=== PATIENT | female | born 1945 | race Caucasian/White ===

== ENCOUNTER 2018-05-31 21:47 | Emergency (ER) | payer MEDICARE, OTHER, MEDICAID ==
[~2018-05-31] VITALS: Ht 154.9 cm; Wt 63.0 kg
[~2018-05-31 21:47] MED LIST: ALBU18HF2 IH; ALD25T PO; ALPR-624 PO; AMIO200T40 PO; DIT5T PO; ESZO3TAB28 PO; FERR325T28 PO; FLUO20CA39 PO; FOLI-43 PO; MAGN400C PO; NOR5T PO; OMEP-84 PO; OXYC-658 PO; POTA10TA25 PO; RIVA15TA PO; SYN0.0125T PO; VITC500T PO
[2018-05-31 23:58] VITALS: BP 116/78
== END 2018-06-01 | disposition home or self-care (01) ==
LOC: ER 21:47
DX: S00.83XA Contusion of other part of head, initial encounter (principal); I48.91 Unspecified atrial fibrillation; I50.9 Heart failure, unspecified; Z88.2 Allergy status to sulfonamides; Z88.8 Allergy status to other drugs, medicaments and biological substances; W18.30XA Fall on same level, unspecified, initial encounter; Y93.89 Activity, other specified; Y92.89 Other specified places as the place of occurrence of the external cause; Y99.8 Other external cause status
CPT/HCPCS: 70450; 70486; 99284

== ENCOUNTER 2018-11-07 17:06 | Emergency (ER) | payer MEDICARE, OTHER, MEDICAID ==
[~2018-11-07] VITALS: Ht 157.5 cm; Wt 61.2 kg
[~2018-11-07 17:06] MED LIST changes: -AMIO200T40 PO; +AMIO200T61 PO
--- NOTE | 2018-11-07 17:19 | NUR ---
Pt taken to room 7, Dr Rodríguez aware of patient.
--- NOTE | 2018-11-07 18:28 | NUR ---
TRAUMA LEVEL 2 CALLED OFF BY [facility]
[2018-11-07] MEDS ORDERED: METO-411 PO (19:05)
[2018-11-07] MEDS ORDERED: AMIT50TA11 PO (19:05)
[2018-11-07] MEDS ORDERED: LISI-600 PO (19:05)
[2018-11-07] MEDS ORDERED: HYDR-3965 PO (21:00)
[2018-11-07 21:47] VITALS: BP 150/85
== END 2018-11-07 22:07 | disposition home or self-care (01) ==
LOC: ER 17:06
DX: S52.612A Displaced fracture of left ulna styloid process, initial encounter for closed fracture (principal); R51 Headache; M25.512 Pain in left shoulder; M19.90 Unspecified osteoarthritis, unspecified site; I48.91 Unspecified atrial fibrillation; I50.9 Heart failure, unspecified; Z98.890 Other specified postprocedural states; Z88.2 Allergy status to sulfonamides; Z88.8 Allergy status to other drugs, medicaments and biological substances; Z79.899 Other long term (current) drug therapy; W01.0XXA Fall on same level from slipping, tripping and stumbling without subsequent striking against object, initial encounter; Y93.89 Activity, other specified; Y92.89 Other specified places as the place of occurrence of the external cause; Y99.8 Other external cause status
CPT/HCPCS: 29125; 70450; 72040; 73110; 99284

== ENCOUNTER 2019-06-30 12:45 | Outpatient (CLI) | payer MEDICARE, OTHER, MEDICAID ==
[~2019-06-30 12:45] MED LIST changes: -ALD25T PO; -ALPR-624 PO; -AMIO200T61 PO; +AMIT25TA9 PO; +AMLO5TAB16 PO; +ATOR40TA72 PO; -DIT5T PO; -ESZO3TAB28 PO; -FERR325T28 PO; -FOLI-43 PO; +LAN0.125T PO; -MAGN400C PO; +METO-384 PO; +NITR100C11 PO; -NOR5T PO; -OMEP-84 PO; -OXYC-658 PO; +PANT40TA4 PO; -POTA10TA25 PO; -RIVA15TA PO; -VITC500T PO
== END 2019-06-30 23:59 | disposition home or self-care (01) ==
LOC: CARD DIAG 12:45
PROVIDERS: ATTEND Internal Medicine Cardiovascular Disease
DX: I35.0 Nonrheumatic aortic (valve) stenosis (principal); Z95.1 Presence of aortocoronary bypass graft
CPT/HCPCS: 93306

== ENCOUNTER 2019-10-18 01:09 | Emergency (ER) | payer MEDICARE, OTHER, MEDICAID ==
[~2019-10-18] VITALS: Ht 157.5 cm; Wt 59.1 kg
[2019-10-18] MEDS ORDERED: morphine 4 MG/ML inj SYRINge IV ONE ×2 (01:30→03:25)
[2019-10-18] MEDS ORDERED: normal saline 1000ML IV soln IVB ONE (01:30)
[2019-10-18] MEDS ORDERED: FURO40TA4 PO (02:08)
[2019-10-18] MEDS ORDERED: MAGN400T39 PO (02:08)
[2019-10-18] MEDS ORDERED: RIVA20TA PO (02:08)
[2019-10-18] MEDS ORDERED: POTA20TA19 PO (02:08)
[2019-10-18 02:15] LABS: ALANINE AMINOTRANSFERASE 26 U/L (12-78); ALBUMIN 3.4 G/DL (3.4-5.0); ALBUMIN/GLOBULIN RATIO 0.8 (1.1-1.5); ALKALINE PHOSPHATASE 263 IU/L (46-116); ANION GAP 5 (8-16); ASPARTATE AMINO TRANSFERASE 48 U/L (10-37); BILIRUBIN,TOTAL 0.9 MG/DL (0.1-1.0); BLOOD UREA NITROGEN 20 MG/DL (7-18); BUN/CREATININE RATIO 19.8 (6.6-38.0); CALCIUM 8.9 MG/DL (8.5-10.1); CHLORIDE 103 MMOL/L (99-107); CREATININE 1.01 MG/DL (0.40-0.90); GLUCOSE 103 MG/DL (70-104); LIPASE 281 U/L (73-393); POTASSIUM 4.4 MMOL/L (3.5-5.1); SODIUM 135 MMOL/L (135-145); TOTAL PROTEIN 7.8 G/DL (6.4-8.2); eGFR 53 ML/MIN
[2019-10-18 02:23] LABS: BASOPHILS # (AUTO) 0.1 X10'3 (0-0.2); BASOPHILS % (AUTO) 0.7 % (0-1); EOSINOPHILS # (AUTO) 0.2 X10'3 (0-0.9); EOSINOPHILS % (AUTO) 2.9 % (0-6); HEMOGLOBIN 14.3 g/dl (12.0-16.0); LYMPHOCYTES # (AUTO) 1.4 X10'3 (1.1-4.8); LYMPHOCYTES % (AUTO) 16.7 % (21-51); MEAN CORPUSCULAR HEMOGLOBIN 30.5 PG (27.0-31.0); MEAN CORPUSCULAR HGB CONC 33.2 g/dL (33.0-36.5); MEAN CORPUSCULAR VOLUME 91.9 FL (78-98); MONOCYTES % (AUTO) 12.3 % (2-12); NEUTROPHILS # (AUTO) 5.5 X10'3 (1.8-7.7); NEUTROPHILS % (AUTO) 67.4 % (42-75); PLATELET COUNT 229 X10'3 (140-440); RED BLOOD COUNT 4.68 X10'6 (4.20-5.60); RED CELL DISTRIBUTION WIDTH 16.5 % (11.5-14.5); WHITE BLOOD COUNT 8.2 X10'3 (4.5-11.0)
[2019-10-18 02:41] LABS: CLARITY,URINE CLOUDY (Clear); COLOR,URINE YELLOW (Yellow); GLUCOSE, URINE NEGATIVE (Neg); KETONES,URINE NEGATIVE (Neg); LEUKOCYTE ESTERASE ,URINE SMALL (Neg); NITRITES, URINE POSITIVE (Neg); OCCULT BLOOD,URINE SMALL (Neg); PH,URINE 5.5 (4.8-8.0); PROTEIN,URINE NEGATIVE (Neg)
[2019-10-18 02:53] LABS: UA COLLECTION TYPE STRAIGHT CATH
[2019-10-18] MEDS ORDERED: CefTRIAXone/D5W-Rocephin 1gm 50 ML IV ONE (03:05)
[2019-10-18] MEDS ORDERED: simethicone 125mg capsule PO SCH (03:05)
[2019-10-18] MEDS ORDERED: POLY17PO10 PO (03:06)
[2019-10-18] MEDS ORDERED: CEFD300C3 PO (03:06)
[2019-10-18] MEDS ORDERED: MYL80T PO (03:06)
[2019-10-18 03:13] LABS: BACTERIA,URINE 4+ /HPF (Neg); MUCUS STRANDS NONE SEEN /LPF (Neg); RBC,URINE 0-2 /HPF (0-2); SQUAMOUS EPITHELIAL CELL,UR FEW /LPF (FEW); WBC CLUMPS,URINE MANY /HPF (NEGATIVE); WBC,URINE 30-50 /HPF (0-4)
[2019-10-18] MEDS ORDERED: heparin sodium, porcine/PF 100unit/ml 5ML syringe IV ONE ×2 (03:25→03:35)
[2019-10-18 04:01] VITALS: BP 131/98
[2019-10-18 05:37] LABS: ANISOCYTOSIS 1+; PLATELET ESTIMATE NORMAL
[2019-10-18 05:38] LABS: ELLIPTOCYTES 1+
== END 2019-10-18 04:03 | disposition home or self-care (01) ==
LOC: ER 01:10
DX: N39.0 Urinary tract infection, site not specified (principal); K59.00 Constipation, unspecified; R10.9 Unspecified abdominal pain; I48.91 Unspecified atrial fibrillation; I25.10 Atherosclerotic heart disease of native coronary artery without angina pectoris; I50.9 Heart failure, unspecified; J44.9 Chronic obstructive pulmonary disease, unspecified; Z85.9 Personal history of malignant neoplasm, unspecified; Z98.890 Other specified postprocedural states; Z60.2 Problems related to living alone; Z88.2 Allergy status to sulfonamides; Z88.8 Allergy status to other drugs, medicaments and biological substances; Z79.2 Long term (current) use of antibiotics; Z79.899 Other long term (current) drug therapy; R41.0 Disorientation, unspecified
CPT/HCPCS: 36415; 70450; 74176; 80053; 81001; 83605; 83690; 85025; 85610; 87077; 87088; 87186; 93005; 96365; 96375; 96376; 99285; J0696; J1642; J2270; J7030

== ENCOUNTER 2022-03-01 06:24 | Emergency (ER) | payer BC, OTHER, MEDICAID ==
[~2022-03-01] VITALS: Ht 152.4 cm; Wt 53.6 kg
[~2022-03-01 06:24] MED LIST changes: -ALBU18HF2 IH; +FURO40TA4 PO; -LAN0.125T PO; +MAGN400T39 PO; -NITR100C11 PO; -PANT40TA4 PO; +PANT40TA54 PO; +POTA-207 PO; +RIVA20TA PO
[2022-03-01 06:48] LABS: BASOPHILS # (AUTO) 0.1 X10'3 (0-0.2); BASOPHILS % (AUTO) 1.3 % (0-1); EOSINOPHILS # (AUTO) 0.4 X10'3 (0-0.9); EOSINOPHILS % (AUTO) 4.7 % (0-6); HEMATOCRIT 41.4 % (35.0-45.0); HEMOGLOBIN 13.2 g/dl (12.0-16.0); LYMPHOCYTES # (AUTO) 1.7 X10'3 (1.1-4.8); LYMPHOCYTES % (AUTO) 20.7 % (21-51); MEAN CORPUSCULAR HEMOGLOBIN 29.1 PG (27.0-31.0); MEAN CORPUSCULAR VOLUME 91.1 FL (78-98); MEAN PLATELET VOLUME 8.3 FL (7.4-10.4); MONOCYTES # (AUTO) 0.9 X10'3 (0-0.9); MONOCYTES % (AUTO) 11.4 % (2-12); NEUTROPHILS # (AUTO) 5.1 X10'3 (1.8-7.7); NEUTROPHILS % (AUTO) 61.9 % (42-75); PLATELET COUNT 222 X10'3 (140-440); RED BLOOD COUNT 4.54 X10'6 (4.20-5.60); WHITE BLOOD COUNT 8.2 X10'3 (4.5-11.0)
[2022-03-01 06:57] VITALS: BP 151/87
[2022-03-01 07:43] LABS: ALANINE AMINOTRANSFERASE 33 U/L (12-78); ALBUMIN 3.7 G/DL (3.4-5.0); ALBUMIN/GLOBULIN RATIO 0.9 (1.1-1.5); ALKALINE PHOSPHATASE 168 IU/L (46-116); ANION GAP 10 (8-16); ASPARTATE AMINO TRANSFERASE 48 U/L (10-37); BILIRUBIN,TOTAL 0.8 MG/DL (0.1-1.0); BLOOD UREA NITROGEN 19 MG/DL (7-18); BUN/CREATININE RATIO 22.6 (6.6-38.0); CALCIUM 8.9 MG/DL (8.5-10.1); CHLORIDE 105 MMOL/L (99-107); CREATININE 0.84 MG/DL (0.40-0.90); GLUCOSE 123 MG/DL (70-104); MAGNESIUM 2.2 MG/DL (1.5-2.4); POTASSIUM 4.7 MMOL/L (3.5-5.1); SODIUM 138 MMOL/L (135-145); TOTAL CARBON DIOXIDE 23.2 MMOL/L (24-32); TOTAL PROTEIN 7.7 G/DL (6.4-8.2); eGFR 66 ML/MIN
== END 2022-03-01 17:33 | disposition left against medical advice (07) ==
LOC: ER 06:25
DX: R07.89 Other chest pain (principal); Z53.21 Procedure and treatment not carried out due to patient leaving prior to being seen by health care provider
CPT/HCPCS: 36415; 71045; 80053; 83735; 83880; 84484; 85025

== ENCOUNTER 2023-11-04 14:06 | Inpatient (IN) | payer MEDICARE, OTHER, MEDICAID ==
[~2023-11-04] VITALS: Ht 160 cm; Wt 52.5 kg
[2023-11-04] MEDS: normal saline 1000ML IV soln IVB ONE (17:13)
[2023-11-04 17:23] LABS: BILIRUBIN,URINE SMALL (Neg); CLARITY,URINE CLOUDY (Clear); GLUCOSE, URINE NEGATIVE (Neg); KETONES,URINE NEGATIVE (Neg); LEUKOCYTE ESTERASE ,URINE TRACE (Neg); NITRITES, URINE POSITIVE (Neg); OCCULT BLOOD,URINE NEGATIVE (Neg); PROTEIN,URINE 30 mg/dl (Neg)
[2023-11-04 17:24] LABS: COLOR,URINE DARK YELLOW (Yellow); UA COLLECTION TYPE FOLEY CATH
[2023-11-04 17:29] LABS: BACTERIA,URINE 4+ /HPF (Neg); CAL OXALATE CRYSTALS 1+ /HPF (NEGATIVE); MUCUS STRANDS NONE SEEN /LPF (Neg); RBC,URINE NONE SEEN /HPF (0-2); RENAL CELLS, URINE FEW /HPF; SQUAMOUS EPITHELIAL CELL,UR FEW /LPF (FEW); TRANSITIONAL EPI CELLS,URINE FEW /HPF
[2023-11-04 17:31] LABS: BASOPHILS # (AUTO) 0.1 X10'3 (0-0.2); BASOPHILS % (AUTO) 1.1 % (0-1); EOSINOPHILS # (AUTO) 0.1 X10'3 (0-0.9); EOSINOPHILS % (AUTO) 1.7 % (0-6); HEMATOCRIT 32.2 % (35.0-45.0); HEMOGLOBIN 9.3 g/dl (12.0-16.0); LYMPHOCYTES # (AUTO) 0.9 X10'3 (1.1-4.8); LYMPHOCYTES % (AUTO) 15.1 % (21-51); MEAN CORPUSCULAR HEMOGLOBIN 22.1 PG (27.0-31.0); MEAN CORPUSCULAR HGB CONC 28.9 g/dL (33.0-36.5); MEAN CORPUSCULAR VOLUME 76.5 FL (78-98); MEAN PLATELET VOLUME 8.1 FL (7.4-10.4); MONOCYTES # (AUTO) 0.5 X10'3 (0-0.9); MONOCYTES % (AUTO) 8.4 % (2-12); NEUTROPHILS # (AUTO) 4.3 X10'3 (1.8-7.7); NEUTROPHILS % (AUTO) 73.7 % (42-75); PLATELET COUNT 181 X10'3 (140-440); RED BLOOD COUNT 4.21 X10'6 (4.20-5.60); RED CELL DISTRIBUTION WIDTH 23.7 % (11.5-14.5); WHITE BLOOD COUNT 5.8 X10'3 (4.5-11.0)
[2023-11-04 17:35] LABS: ALBUMIN 2.4 G/DL (3.4-5.0); ANION GAP 8 (8-16); BLOOD UREA NITROGEN 21 MG/DL (7-18); BUN/CREATININE RATIO 16.2 (10.0-20.0); CALCIUM 8.3 MG/DL (8.5-10.1); CHLORIDE 107 MMOL/L (99-107); GLUCOSE 109 MG/DL (70-104); SODIUM 141 MMOL/L (135-145); TOTAL CARBON DIOXIDE 26.5 MMOL/L (24-32); eCRCL 29 ML/MIN; eGFR 40 ML/MIN
[2023-11-04 17:52] LABS: PLATELET ESTIMATE NORMAL
[2023-11-04 17:53] LABS: ANISOCYTOSIS 3+; ELLIPTOCYTES 2+; HYPOCHROMASIA 1+; MICROCYTOSIS 1+; POLYCHROMASIA 1+; TARGET CELLS FEW
[2023-11-04 17:55] LABS: SCHISTOCYTES FEW
[2023-11-04] MEDS: CefTRIAXone 2gm/D5W 50ml BAG 50 ML IV SCH (18:02)
[2023-11-04] MEDS ORDERED: HYDROcodone/acetaminophen 5mg/325mg tablet PO PRN (18:15)
[2023-11-04] MEDS ORDERED: magnesium hydroxide 30ml (MOM) UD suspension PO PRN (18:15)
[2023-11-04] MEDS ORDERED: diphenhydrAMINE 25mg capsule PO PRN (18:15)
[2023-11-04] MEDS ORDERED: acetaminophen 650mg rectal suppository RC PRN (18:15)
[2023-11-04] MEDS ORDERED: mag hydrox/Alum hydrox/simeth 30ml oral suspension PO PRN (18:15)
[2023-11-04] MEDS ORDERED: diphenhydrAMINE 50 mg/ml inj IV PRN (18:15)
[2023-11-04] MEDS ORDERED: acetaminophen 325mg tablet PO PRN ×2 (18:15)
[2023-11-04] MEDS ORDERED: bisacodyl 10mg suppository rectal RC PRN (18:15)
[2023-11-04] MEDS ORDERED: ondansetron 4mg rapidly disintigrating tab PO PRN (18:15)
[2023-11-04] MEDS ORDERED: ondansetron/PF 4mg/2ml inj IV PRN (18:15)
[2023-11-04 18:54] LABS: HEMOGLOBIN A1C 5.1 % (4.5-6.2)
[2023-11-04 19:03] LABS: LIPASE 34 U/L (16-77); MAGNESIUM 2.2 MG/DL (1.5-2.4); PRO BRAIN NATRIURETIC PEPTIDE 14771 PG/ML (0-450); THYROID STIMULATING HORMONE 0.58 ulU/ml (0.34-4.50)
[2023-11-04 19:05] LABS: PHOSPHORUS 3.1 MG/DL (2.3-4.5)
[2023-11-04] MEDS: dextrose 5%-1/2 normal saline 1,000 ML IV SCH (19:06)
[2023-11-04] MEDS: docusate sod 100mg capsule PO SCH (20:00)
[2023-11-04] MEDS ORDERED: GABA-530 (20:50)
[2023-11-04] MEDS ORDERED: temazepam 15mg capsule PO PRN (21:00)
[2023-11-04] MEDS: heparin, porcine 5000 units/ml vial SQ SCH (21:24)
[2023-11-04 23:33] LABS: APTT 46 SECONDS (22-32); D-DIMER 0.46 MG/L FEU (0-0.50); PROTHROMBIN TIME 49.4 SECONDS (9.0-12.0)
[2023-11-04 23:37] LABS: INR 5.3 INR
[2023-11-04 23:39] VITALS: RESP 20; O2SAT 92
[2023-11-05] VITALS (7 sets, daily range): BP systolic 97–141; BP diastolic 39–96; PULSE 68–91; RESP 17–20; TEMP 97–98.1; O2SAT 90–97
[2023-11-05 07:23] LABS: INR 3.6 INR
[2023-11-05 08:04] LABS: CHOL/HDL RATIO 2.4 (0.00-4.99); CHOLESTEROL 80 MG/DL (0-200); HDL CHOLESTEROL 34 MG/DL (35-60); LDL CHOLESTEROL 34 MG/DL (50-100); TRIGLYCERIDES 69 MG/DL (20-135)
[2023-11-05] MEDS: pantoprazole 40mg Tablet.DR PO SCH (10:14)
[2023-11-05 10:43] LABS: ALANINE AMINOTRANSFERASE 12 U/L (12-78); ALBUMIN 2.5 G/DL (3.4-5.0); ALBUMIN/GLOBULIN RATIO 0.6 (1.1-1.5); ALKALINE PHOSPHATASE 126 IU/L (46-116); ANION GAP 9 (8-16); ASPARTATE AMINO TRANSFERASE 33 U/L (10-37); BLOOD UREA NITROGEN 19 MG/DL (7-18); BUN/CREATININE RATIO 19.2 (10.0-20.0); CALCIUM 8.1 MG/DL (8.5-10.1); CHLORIDE 107 MMOL/L (99-107); CREATININE 0.99 MG/DL (0.40-0.90); GLUCOSE 100 MG/DL (70-104); POTASSIUM 3.9 MMOL/L (3.5-5.1); SODIUM 140 MMOL/L (135-145); TOTAL CARBON DIOXIDE 24.4 MMOL/L (24-32); TOTAL PROTEIN 6.6 G/DL (6.4-8.2); eCRCL 38 ML/MIN; eGFR 54 ML/MIN
[2023-11-05 11:16] LABS: BASOPHILS % (AUTO) 1.1 % (0-1); EOSINOPHILS # (AUTO) 0.1 X10'3 (0-0.9); EOSINOPHILS % (AUTO) 2.9 % (0-6); HEMATOCRIT 30.4 % (35.0-45.0); HEMOGLOBIN 8.8 g/dl (12.0-16.0); LYMPHOCYTES # (AUTO) 0.8 X10'3 (1.1-4.8); LYMPHOCYTES % (AUTO) 19.7 % (21-51); MEAN CORPUSCULAR HGB CONC 28.9 g/dL (33.0-36.5); MEAN CORPUSCULAR VOLUME 76.1 FL (78-98); MONOCYTES # (AUTO) 0.5 X10'3 (0-0.9); MONOCYTES % (AUTO) 10.9 % (2-12); NEUTROPHILS # (AUTO) 2.7 X10'3 (1.8-7.7); NEUTROPHILS % (AUTO) 65.4 % (42-75); PLATELET COUNT 174 X10'3 (140-440); RED CELL DISTRIBUTION WIDTH 23.6 % (11.5-14.5); WHITE BLOOD COUNT 4.2 X10'3 (4.5-11.0)
[2023-11-05] MEDS: CefTRIAXone/D5W-Rocephin 1gm 50 ML IV SCH (17:42)
[2023-11-06] VITALS (7 sets, daily range): BP systolic 93–123; BP diastolic 56–75; PULSE 64–124; RESP 12–28; TEMP 96.4–98; O2SAT 91–97
[2023-11-06 06:49] LABS: BASOPHILS # (AUTO) 0.1 X10'3 (0-0.2); BASOPHILS % (AUTO) 0.8 % (0-1); EOSINOPHILS # (AUTO) 0.1 X10'3 (0-0.9); EOSINOPHILS % (AUTO) 1.6 % (0-6); LYMPHOCYTES # (AUTO) 0.9 X10'3 (1.1-4.8); LYMPHOCYTES % (AUTO) 14.3 % (21-51); MEAN CORPUSCULAR HEMOGLOBIN 21.9 PG (27.0-31.0); MEAN CORPUSCULAR HGB CONC 29.2 g/dL (33.0-36.5); MEAN CORPUSCULAR VOLUME 75.1 FL (78-98); MEAN PLATELET VOLUME 8.6 FL (7.4-10.4); MONOCYTES # (AUTO) 0.5 X10'3 (0-0.9); MONOCYTES % (AUTO) 7.9 % (2-12); NEUTROPHILS # (AUTO) 4.6 X10'3 (1.8-7.7); NEUTROPHILS % (AUTO) 75.4 % (42-75); PLATELET COUNT 196 X10'3 (140-440); RED BLOOD COUNT 4.13 X10'6 (4.20-5.60); WHITE BLOOD COUNT 6.2 X10'3 (4.5-11.0)
[2023-11-06 07:14] LABS: ALANINE AMINOTRANSFERASE 12 U/L (12-78); ALBUMIN 2.6 G/DL (3.4-5.0); ALBUMIN/GLOBULIN RATIO 0.7 (1.1-1.5); ALKALINE PHOSPHATASE 124 IU/L (46-116); ANION GAP 10 (8-16); ASPARTATE AMINO TRANSFERASE 27 U/L (10-37); BLOOD UREA NITROGEN 16 MG/DL (7-18); CALCIUM 8.4 MG/DL (8.5-10.1); CHLORIDE 105 MMOL/L (99-107); CREATININE 0.94 MG/DL (0.40-0.90); GLUCOSE 121 MG/DL (70-104); POTASSIUM 3.8 MMOL/L (3.5-5.1); SODIUM 137 MMOL/L (135-145); TOTAL CARBON DIOXIDE 21.9 MMOL/L (24-32); TOTAL PROTEIN 6.6 G/DL (6.4-8.2); eCRCL 40 ML/MIN; eGFR 57 ML/MIN
[2023-11-06] MEDS: JUVEN Shake w/Arg/Glut/Ca2+Bmb (Juven 19.3gm) pkt 240ml PO SCH (17:43)
[2023-11-06] MEDS: metoprolol tartrate 1mg/ml inj IV ONE (23:10)
[2023-11-06] MEDS: normal saline 500ml IV soln 500 ML IV ONE (23:51)
[2023-11-07] MEDS: morphine 2 MG/ML inj. syringe IV PRN ×3 (00:39→15:58)
[2023-11-07 02:00] VITALS: BP 100/45; PULSE 110; RESP 26; TEMP 98.2
[2023-11-07 06:00] VITALS: BP 100/56; PULSE 70; RESP 16; TEMP 97.8
[2023-11-07 07:19] LABS: BASOPHILS % (AUTO) 0.6 % (0-1); EOSINOPHILS % (AUTO) 0.3 % (0-6); HEMATOCRIT 30.7 % (35.0-45.0); HEMOGLOBIN 8.8 g/dl (12.0-16.0); LYMPHOCYTES # (AUTO) 0.8 X10'3 (1.1-4.8); LYMPHOCYTES % (AUTO) 13.6 % (21-51); MEAN CORPUSCULAR HEMOGLOBIN 21.7 PG (27.0-31.0); MEAN CORPUSCULAR HGB CONC 28.5 g/dL (33.0-36.5); MEAN CORPUSCULAR VOLUME 76.1 FL (78-98); MEAN PLATELET VOLUME 8.8 FL (7.4-10.4); MONOCYTES # (AUTO) 0.5 X10'3 (0-0.9); MONOCYTES % (AUTO) 8.2 % (2-12); NEUTROPHILS # (AUTO) 4.6 X10'3 (1.8-7.7); NEUTROPHILS % (AUTO) 77.3 % (42-75); PLATELET COUNT 172 X10'3 (140-440); RED BLOOD COUNT 4.04 X10'6 (4.20-5.60); RED CELL DISTRIBUTION WIDTH 23.7 % (11.5-14.5); WHITE BLOOD COUNT 5.9 X10'3 (4.5-11.0)
[2023-11-07 07:29] LABS: ALANINE AMINOTRANSFERASE 13 U/L (12-78); ALBUMIN 2.5 G/DL (3.4-5.0); ALBUMIN/GLOBULIN RATIO 0.6 (1.1-1.5); ALKALINE PHOSPHATASE 128 IU/L (46-116); ANION GAP 13 (8-16); ASPARTATE AMINO TRANSFERASE 22 U/L (10-37); BILIRUBIN,TOTAL 1.3 MG/DL (0.1-1.0); BLOOD UREA NITROGEN 20 MG/DL (7-18); BUN/CREATININE RATIO 18.3 (10.0-20.0); CALCIUM 8.6 MG/DL (8.5-10.1); CHLORIDE 105 MMOL/L (99-107); CREATININE 1.09 MG/DL (0.40-0.90); GLUCOSE 101 MG/DL (70-104); POTASSIUM 4.4 MMOL/L (3.5-5.1); SODIUM 137 MMOL/L (135-145); TOTAL CARBON DIOXIDE 19.4 MMOL/L (24-32); TOTAL PROTEIN 6.4 G/DL (6.4-8.2); eCRCL 35 ML/MIN; eGFR 48 ML/MIN
[2023-11-07 08:00] VITALS: RESP 16; O2SAT 96
[2023-11-07] MEDS: MULTIVIT-MIN/FERROUS GLUCONATE 9 MG/15 ML LIQUID PO SCH (08:00)
[2023-11-07] MEDS: furosemide 20 MG/2 ML vial IV SCH (08:03)
[2023-11-07 09:46] LABS: ABG BASE EXCESS -4.6 mmol/L (-2.0-2.0); ABG HCO3 17.7 mmol/L (22.0-26.0); ABG OXYGEN SATURATION 99.7 % (92-98.5); ABG PCO2 (T) 23.8 mmHg (32.0-45.0); ABG PH (T) 7.487 (7.350-7.450); ABG PO2 (T) 301.3 mmHg (75.0-100.0); ALLEN'S TEST POSITIVE; FCOHb 1.2 % (0.5-1.5); FHHb 0.3 % (0.0-5.0); FLOW 15 L/min; FMetHb 0.3 % (0.0-1.5); FO2Hb 98.2 % (94-97); MODE MASK - NRB; PATIENT TEMPERATURE 36.6; TOTAL HEMOGLOBIN 10.2 G/dl (12.0-16.0)
[2023-11-07] MEDS ORDERED: hyoscyamine 0.125mg TAB.SUBL SL PRN (11:55)
[2023-11-07] MEDS ORDERED: LORazepam 0.5 MG tablet PO PRN (11:55)
[2023-11-07] MEDS: lactose-reduced food (Ensure Enlive) - 237ml bottle PO SCH (13:02)
[2023-11-07] MEDS: morphine 10mg/0.5ml (conc. morphine) oral syringe PO PRN (14:19)
[2023-11-07] MEDS: LORazepam 2 mg/ml vial IV PRN (15:57)
[2023-11-07 19:00] VITALS: RESP 16; O2SAT 96
[2023-11-08] MEDS: furosemide 20MG tablet PO SCH (08:00)
[2023-11-08 09:00] VITALS: RESP 16; O2SAT 96
[2023-11-08 17:50] VITALS: RESP 16
== END 2023-11-09 09:36 | disposition hospice, home (50) | DRG 871 ==
LOC: ER 14:07 → ED HOLD 18:56 → PCU 3S 22:45 → SUR 3N 11-07 22:05
PROVIDERS: ADMIT Family Medicine; ATTEND Family Medicine
PROC: 05HA33Z Insertion of Infusion Device into Left Brachial Vein, Percutaneous Approach (ICD-10-PCS; principal; 2023-11-09)
DX: A41.9 Sepsis, unspecified organism (principal); G93.41 Metabolic encephalopathy; J96.01 Acute respiratory failure with hypoxia; N17.0 Acute kidney failure with tubular necrosis; N39.0 Urinary tract infection, site not specified; I13.0 Hypertensive heart and chronic kidney disease with heart failure and stage 1 through stage 4 chronic kidney disease, or unspecified chronic kidney disease; J44.1 Chronic obstructive pulmonary disease with (acute) exacerbation; I48.20 Chronic atrial fibrillation, unspecified; L89.159 Pressure ulcer of sacral region, unspecified stage; I25.10 Atherosclerotic heart disease of native coronary artery without angina pectoris; Z60.2 Problems related to living alone; E16.2 Hypoglycemia, unspecified; R62.7 Adult failure to thrive; D64.9 Anemia, unspecified; E03.9 Hypothyroidism, unspecified; F03.90 Unspecified dementia, unspecified severity, without behavioral disturbance, psychotic disturbance, mood disturbance, and anxiety; N18.9 Chronic kidney disease, unspecified; I35.0 Nonrheumatic aortic (valve) stenosis; I27.20 Pulmonary hypertension, unspecified; I50.9 Heart failure, unspecified; Z88.2 Allergy status to sulfonamides; Z79.899 Other long term (current) drug therapy; Z95.1 Presence of aortocoronary bypass graft; Z98.84 Bariatric surgery status; Z51.5 Encounter for palliative care; Z68.20 Body mass index [BMI] 20.0-20.9, adult; Z85.01 Personal history of malignant neoplasm of esophagus
CPT/HCPCS: 36410; 36415; 36600; 70450; 71045; 71250; 74176; 76937; 80048; 80053; 80061; 81001; 82803; 83036; 83605; 83690; 83735; 83880; 84100; 84145; 84443; 84484; 85008; 85018; 85025; 85379; 85610; 85730; 87040; 87077; 87081; 87088; 87186; 92508; 92616; 93306; 96365; 97110; 97161; 97530; 97535; 99285; A4615; A4649; A6212; A6213; A6446; A6449; C1751; G0378; J0696; J1644; J1940; J2060; J2270; J7030; J7040